=== PATIENT | male | born 1955 | race Caucasian/White ===

== ENCOUNTER → 2021-08-28 | Outpatient (CLI) | payer MEDICARE, OTHER ==
--- NOTE | 2021-08-28 12:05 | RAD ---
EXAM: Left hip, 2 views. HISTORY: Pain. COMPARISON: None. FINDINGS: 2 views of the left hip are obtained. There is no fracture, dislocation or subluxation. The femoral head is normal in configuration. IMPRESSION: No acute osseous finding. Electronically signed by: Diana Garcia MD (08/28/2021 12:02 PM) [id number]
== END ==
LOC: RAD 11:53
PROVIDERS: ATTEND Family Medicine
DX: M25.552 Pain in left hip (principal)
CPT/HCPCS: 73502